=== PATIENT | female | born 1975 | race African-American/Black ===

== ENCOUNTER 2025-06-16 10:31 | Emergency (ER) | payer OTHER ==
[2025-06-16 11:03] LABS: #Basophils Less than 0.03 10x3/uL (0.0-0.2); #Eosinophils 0.08 10x3/uL (0.0-0.5); #Monocytes 0.34 10x3/uL (0.0-1.1); #Neutrophils 1.49 10x3/uL (1.5-8.4); %Basophils 0.5 % (0.0-2.0); %Eosinophils 2.2 % (0.0-6.0); %Lymphocytes 47.8 % (18.0-47.0); %Monocytes 9.1 % (0.0-10.0); %Neutrophils 40.1 % (40.0-75.0); Hematocrit 32.2 % (34.9-44.5); Hemoglobin 9.5 g/dL (12.0-15.5); Mean Corpuscular Hemoglobin 21.7 pg (27.0-33.0); Mean Corpuscular Volume 73.7 fL (81.6-98.3); Platelet Count 150 10x3/uL (150-450); Red Blood Cell (RBC) Count 4.37 10x6/uL (3.90-5.03); White Blood Cell (WBC) Count 3.72 10x3/uL (3.5-10.5)
[2025-06-16] MEDS ORDERED: Fluorescein Opthalmic Strip ONE (11:12)
[2025-06-16 11:14] LABS: INR-International Normal Ratio 0.9; PTT 24.8 sec (22.0-33.0); Prothrombin Time 10.4 sec (9.5-12.1)
[2025-06-16 11:18] LABS: ALT (SGPT) 56 U/L (Less than 34); AST (SGOT) 70 U/L (11-34); Albumin 3.8 g/dL (3.1-4.5); Alkaline Phosphatase 94 U/L (40-110); Anion Gap 12 mmol/L (10-20); BUN (Urea Nitrogen) 21 mg/dL (9.8-20.1); Bilirubin, Total 0.5 mg/dL (0.3-1.2); Calc. Creatinine Clearance 0 mL/min (70-130); Calcium 8.4 mg/dL (7.8-10.44); Carbon Dioxide 23 mmol/L (22-29); Chloride 112 mmol/L (98-107); Globulin 2.8 g/dL (2.4-3.5); Glucose 65 mg/dL (70-105); Lipase 28 U/L (8-78); Potassium 4.1 mmol/L (3.5-5.1); Sodium 143 mmol/L (136-145)
[2025-06-16 11:20] LABS: Microcytosis SLIGHT = 6-15 cells (100X) (0-5/hpf); Ovalocytes SLIGHT = 2-5 cells (100X) (0-1/hpf)
[2025-06-16] MEDS ORDERED: Acetaminophen 500 MG TAB ONE (11:43)
[2025-06-16 12:25] LABS: Glucose, Urine (Dipstick) Normal (Negative); Leukocyte Negative (Negative); Protein, Urine (Dipstick) Negative (Neg-Trace); Specific Gravity, Urine 1.015 (1.005-1.030)
[2025-06-16 12:33] LABS: Cocaine Metabolite Screen Negative (Negative); THC/Cannabinoid Screen Negative (Negative); Tricyclic Screen Negative (Negative)
[2025-06-16 12:39] LABS: Bacteria/HPF 1+ HPF (None Seen); CAUTI Indications for Culture Pelvic or flank pain; WBC/HPF 0-3 HPF (0-3)
[2025-06-16 12:40] LABS: Urine Culture Reflex No No
[2025-06-16] MEDS ORDERED: Ketorolac Tromethamine 30 MG (1 mL) VIAL ONE (14:00)
[2025-06-16] MEDS ORDERED: Iopamidol 300 61% 100 ML VIAL FS ONE (14:20)
== END 2025-06-16 14:55 | disposition home or self-care (01) ==
LOC: CSHERS 10:31
DX: D64.9 Anemia, unspecified (principal); R29.91 Unspecified symptoms and signs involving the musculoskeletal system; V89.2XXA Person injured in unspecified motor-vehicle accident, traffic, initial encounter; W22.12XA Striking against or struck by front passenger side automobile airbag, initial encounter; Y92.410 Unspecified street and highway as the place of occurrence of the external cause
CPT/HCPCS: 70450; 71260; 72125; 74177; 80053; 80306; 80307; 81001; 83690; 85025; 85610; 85730; 93005; 94760; 96374; J1885; Q9967